=== PATIENT | male | born 1990 | race Two or more races ===

== ENCOUNTER 2016-05-29 12:32 | Emergency (ER) | payer SELFPAY ==
[2016-05-29] MEDS ORDERED: METHOCARBAMOL 500 MG TABLET PO ONE (13:44)
[2016-05-29] MEDS ORDERED: PREDNISONE 20 MG TABLET PO ONE (13:44)
[2016-05-29] MEDS ORDERED: OXYCODONE-ACETAMINOPHEN 5-325 MG TABLET PO ONE (13:44)
--- NOTE | 2016-05-29 13:57 | ER Document Report ---
HPI - HPI Patient complains to provider of: back pain Onset: Yesterday Onset/Duration: Persistent Quality of pain: Achy Severity: Severe Pain Level: 5 Context: Patient presents to the emergency department with complaints of low back pain. Patient reports his back was a little bit sore after slipping on air neck dressing last week. He also reports that he played basketball last week and it started hurting. He reports yesterday he went up to take a jump shot playing basketball when he came down his back started hurting. He denies falling. He denies past medical history of injury to the back. He denies steroid injections or cancers. He denies urinary or bowel incontinence or retention or numbness and tingling. Patient reports it hurts to move from a sitting or laying position to a standing position. Associated Symptoms: None Exacerbated by: Other - sitting/laying to standing position Relieved by: Denies Similar symptoms previously: No Recently seen / treated by doctor: No - DERM Skin Color: Normal Past Medical History - General Information source: Patient - Social History Smoking Status: Unknown if Ever Smoked Cigarette use (# per day): No Frequency of alcohol use: None Drug Abuse: None Occupation: maintenance Lives with: Family Family History: Reviewed & Not Pertinent Patient has suicidal ideation: No Patient has homicidal ideation: No - Medical History Medical History: Negative Renal/ Medical History: Denies: Hx Peritoneal Dialysis Surgical Hx: Negative - Immunizations Immunizations up to date: Yes Hx Diphtheria, Pertussis, Tetanus Vaccination: Yes Vertical Provider Document - CONSTITUTIONAL Agree With Documented VS: Yes Exam Limitations: No Limitations General Appearance: WD/WN, Mild Distress - INFECTION CONTROL TRAVEL OUTSIDE OF THE [place] IN LAST 30 DAYS: No - HEENT HEENT: Atraumatic, Normocephalic. negative: Conjuctival Injection - NECK Neck: Normal Inspection, Supple. negative: Lymphadenopathy-Left, Lymphadenopathy-Right - RESPIRATORY Respiratory: Breath Sounds Normal, No Respiratory Distress O2 Sat by Pulse Oximetry: 98 - CARDIOVASCULAR Cardiovascular: Regular Rate, Regular Rhythm - GI/ABDOMEN Gastrointestinal: Abdomen Soft, Abdomen Non-Tender - BACK Back: Normal Inspection - no obvious deformity, no erythema/swelling/warmth, good distal movement and sensation, no weakness, up on toes/roll back on heels without c/o pain - MUSCULOSKELETAL/EXTREMETIES Musculoskeletal/Extremeties: PEARL SIMON - NEURO Level of Consciousness: Awake, Alert, Appropriate Motor/Sensory: No Motor Deficit - DERM Integumentary: Warm, Dry Adult Front & Back Diagram: 1 - c/o pain Course - Re-evaluation Re-evalutation: 05/29/16 13:50 The patient presents with low back pain without signs of spinal cord compression , cauda equine syndrome, infection, aneurysm, or other serious etiology. The patient is neurologically intact. The patient has good distal movement and sensation, denies urinary or bowel incontinence/retention. Given the extremely low risk of these diagnosis, further testing and evaluation for these possibilities does not appear to be indicated at this time. The patient has been instructed to return if the symptoms worsen or change in anyway. - Vital Signs Vital signs: Temp Pulse Resp BP Pulse Ox 98.8 F 84 18 131/85 H 98 05/29/16 12:41 05/29/16 12:41 05/29/16 12:41 05/29/16 12:41 05/29/16 12:41 Discharge - Discharge Clinical Impression: Back pain, Elevated blood pressure reading Condition: Stable Disposition: HOME, SELF-CARE Instructions: Oral Narcotic Medication ([facility]), Ice Packs ([facility]), Warm Packs ([facility]) , Low Back Pain ([facility]), Muscle Strain ([facility]), Muscle Relaxers ([facility]), Steroid Medication, Ibuprofen (General) ([facility]) Additional Instructions: *You have been evaluated for back pain, elevated blood pressure reading *Take medication as prescribed *Rest/Ice- heat - alternate as directed (20 minutes on/20 minutes off) *Follow up with a primary care provider within one week for recheck *Return to ED for worsening condition, changes, needs Monitor your blood pressure. Your blood pressure was elevated today. This may be because you were anxious, in pain or because you need medication. It is important to follow up with your primary care provider for full evaluation. Prescriptions: Cyclobenzaprine HCl [Flexeril 10 Mg Tablet] 10 mg PO TID #30 tablet Ibuprofen [Motrin 800 mg Tablet] 800 mg PO TID #30 tablet Oxycodone HCl/Acetaminophen [Percocet 5-325 mg Tablet] 1 - 2 tab PO ASDIR PRN # 15 tablet PRN Reason: Prednisone 60 mg PO DAILY #3 tablet Forms: Elevated Blood Pressure, Return to Work
[2016-05-29] MEDS ORDERED: IBUPROFEN 800 MG TABLET PO ONE (14:04)
[2016-05-29 14:15] VITALS: BP 115/80
== END 2016-05-29 14:14 | disposition home or self-care (01) ==
LOC: ER 12:32
DX: R03.0 Elevated blood-pressure reading, without diagnosis of hypertension (principal); M54.9 Dorsalgia, unspecified
CPT/HCPCS: 99283; J7512